=== PATIENT | male | born 1990 | race Caucasian/White ===

== ENCOUNTER 2017-03-31 17:27 | Emergency (ER) | payer OTHER ==
[~2017-03-31] VITALS: Ht 165.1 cm; Wt 53.0 kg
[2017-03-31 20:18] VITALS: BP 127/65
== END 2017-03-31 20:24 | disposition home or self-care (01) ==
LOC: EMS 17:30
DX: S60.221A Contusion of right hand, initial encounter (principal); V29.9XXA Motorcycle rider (driver) (passenger) injured in unspecified traffic accident, initial encounter; Y93.89 Activity, other specified; Y92.89 Other specified places as the place of occurrence of the external cause; Y99.8 Other external cause status
CPT/HCPCS: 99284

== ENCOUNTER 2022-10-20 07:07 | Emergency (ER) | payer OTHER ==
[~2022-10-20] VITALS: Ht 165.1 cm; Wt 61.4 kg
[2022-10-20 08:30] VITALS: BP 127/88
== END 2022-10-20 08:59 | disposition home or self-care (01) ==
LOC: EMS 07:08
DX: S62.309A Unspecified fracture of unspecified metacarpal bone, initial encounter for closed fracture (principal); X58.XXXA Exposure to other specified factors, initial encounter; Y93.89 Activity, other specified; Y92.89 Other specified places as the place of occurrence of the external cause; Y99.8 Other external cause status
CPT/HCPCS: 99283

== ENCOUNTER 2024-05-02 09:21 | Emergency (ER) | payer OTHER ==
[~2024-05-02] VITALS: Ht 165.1 cm; Wt 56.8 kg
[2024-05-02] MEDS ORDERED: ACET-2247 PO (09:24)
[2024-05-02 14:29] VITALS: BP 136/93; PULSE 68; RESP 18; TEMP 98.6; O2SAT 99
[2024-05-02] MEDS ORDERED: IBUP-1492 PO (14:29)
== END 2024-05-02 14:38 | disposition home or self-care (01) ==
LOC: EMS 09:21
DX: S62.302A Unspecified fracture of third metacarpal bone, right hand, initial encounter for closed fracture (principal); S62.655A Nondisplaced fracture of middle phalanx of left ring finger, initial encounter for closed fracture; S20.219A Contusion of unspecified front wall of thorax, initial encounter; Z98.890 Other specified postprocedural states; Y93.66 Activity, soccer; Y08.89XA Assault by other specified means, initial encounter; Y92.89 Other specified places as the place of occurrence of the external cause; Y99.8 Other external cause status
CPT/HCPCS: 71046; 99284